=== PATIENT | male | born 1965 | race Caucasian/White ===

== ENCOUNTER 2019-06-05 09:35 | Emergency (ER) | payer BC ==
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
--- OUTSIDE RECORDS SUMMARY | 2019-06-05 09:41 | XMS REPORT | Continuity of Care Document ---
:1965 External Reference #:[id number] Author Name Eliazar Almaraz M.D (transmitted by agent of provider Robyn Taylor) Address [address] [place] [address] Care Team Providers Name Role Phone Isaac Henley MD Care Team Information Medical Receptionist Assistant [phone] Isaac Henley MD - Family Medicine Care Team Information Medical Receptionist Assistant [phone] Problems Description No Information Available Social History Type Date Description Comments Sex Unknown Tobacco Use Start: Unknown Never Smoked Cigarettes Smokeless Tobacco Current Smokeless Tobacco User ETOH Use Current Alcohol Use - 1-3 Days A Week. Recreational Drug Use Never Used Drugs Allergies, Adverse Reactions, Alerts Description No Known Drug Allergies Medications Active Medications SIG Qnty Indications Ordering Provider Date Diclofenac Sodium Unknown 75mg Tablets DR Lamotrigine Unknown 150mg Tablets Venlafaxine HCL ER every day Unknown 150mg Tablets ER 24HR Omeprazole 1 by mouth Unknown 40mg Capsules DR every day Seroquel Unknown 100mg Tablets Hydroxyzine HCL three times a Unknown 25mg Tablets day as needed Ativan 1 by mouth each Unknown 1mg Tablets day Ingrezza Unknown 80mg Capsules Acetaminophen-Codeine #3 one tab by Unknown mouth as needed 300-30mg Tablets every 4 hours Cyclobenzaprine HCL one tab daily Unknown 5mg Tablets at hs. Saphris Unknown 5mg Tablets Sub Immunizations Description No Information Available Vital Signs Date Vital Result Comment 05/15/2019 1:55pm Weight 170.00 lb Height 73 inches 6'1" BMI (Body Mass Index) 22.4 kg/m2 BP Systolic 115 mmHg BP Diastolic 81 mmHg Heart Rate 72 /min O2 % BldC Oximetry 99 % Body Temperature 97.3 F [place] Score 9 Neck Circumference in inches 15 Pain Level 0 Results Description No Information Available Procedures Description No Information Available Medical Devices Description No Information Available Encounters Description No Information Available Assessments Description No Information Available Plan of Treatment No Information Available Functional Status Description No Information Available Mental Status Description No Information Available Referrals Description No Information Available
--- OUTSIDE RECORDS SUMMARY | 2019-06-05 09:41 | XMS REPORT | Continuity of Care Document ---
:1965 External Reference #:[id number] Author Name Eliazar Almaraz M.D Address [address] [place] [address] Care Team Providers Name Role Phone Isaac Henley MD Care Team Information [employer] [phone] Isaac Henley MD - Family Medicine Care Team Information [employer] [phone] Problems Description No Information Available Social History Type Date Description Comments Sex Unknown Tobacco Use Start: Unknown Never Smoked Cigarettes Smoking Status Reviewed: 05/16/19 Never Smoked Cigarettes Smokeless Tobacco Current Smokeless [...] Oximetry 99 % Body Temperature 97.3 F [place] Score 9 Neck Circumference in inches 15 Pain Level 0 Results Description No Information Available Procedures Description No Information Available Medical Devices Description No Information Available Encounters Description No Information Available Assessments Description No Information Available Plan of Treatment Future Appointment(s):06/05/2019 10:30 am - Jade Stewart NP at [facility]8005/19/2019 8:30 pm - Sleep Lab - Eliazar Almaraz MD at Sleep Lab Functional Status Description No Information Available Mental Status Description No Information Available Referrals Description No Information Available
--- OUTSIDE RECORDS SUMMARY | 2019-06-05 09:41 | XMS REPORT | Continuity of Care Document ---
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 Chief Problems Active Problems Provider Date Atypical depressive [...] 40mg Capsules DR by mouth every day Seroquel 1 by mouth every Unknown 100mg Tablets day Hydroxyzine HCL take one tablet Unknown 25mg by mouth 4 times Tablets a day as needed Ativan 1 take by mouth Unknown 1mg Tablets as needed daily Ingrezza 1 at bedtime [place], 80mg Capsules Acetaminophen-Codeine as directed Joaquin Gomez, #3 DO 300-30mg Tablets Cyclobenzaprine HCL as direcrted prn ElizabethJasmyne, 5mg PA-C Tablets Saphris Dissolve 1 Tablet Unknown 5mg Tablets Sub Under The Tongue Twice A Day History Medications Klonopin 1/2 tab by mouth Isaac Henley MD 10/29/2018 - 10/29/2018 1mg Tablets three times a day as needed Immunizations CPT Code Status Date Vaccine Lot # 52089 Given 03/19/2019 Influenza Virus Vaccine, Quadrivalent, 36 Mos+, [id number] Refused 01/02/2017 Influenza Virus Vaccine Quadrivalent Iiv4 Split Preser Free Id Vital Signs Date Vital Result Comment 04/21/2019 8:09am BP Systolic Sitting Right Arm 117 mmHg BP Diastolic Sitting Right Arm 80 mmHg Body Temperature 97.6 F Heart Rate 86 /min 03/19/2019 8:15am BP Systolic 127 mmHg BP Diastolic 83 mmHg Body Temperature 97.3 F Heart Rate 77 /min Respiratory Rate 17 /min Height 71 inches 5'11" Weight 171.00 lb BMI (Body Mass Index) 23.8 kg/m2 BSA (Body Surface Area) 1.97 m2 [place] body weight in kilograms 78 kg O2 % BldC Oximetry 99 % Results Test Acquired Date Facility Test Result H/L Range Note TSH Reflex 01/23/[address] Thyroid Stim 0.80 uIU/mL Normal 0.30-4.20 1 FT4 And/Or [address] Hormone FT3 [place] [address] [phone] Reflex add FT3? Y Reflex add FT4? Y CBC W/Automated 01/23/[address] White Blood 5.0 K/uL Normal 3.4-10.[address] [place] [address] [phone] Red Blood Count 4.64 M/uL Normal 4.20-5.80 [...] 33.0-73.0 Lymph % 36.8 % Normal 20.0-42.0 [place]ake % 11.3 % High 0.0-10.0 Eo% 0.8 % Normal 0.0-6.6 Bas% 0.6 % Normal 0.0-1.1 Immature Grans 0.2 % Normal 0.0-5.0 NRBC % 0.0 /100WBC < 10/ 100 WBC Neut# 2.53 K/uL Normal 1.8-7.0 Lymph # 1.85 K/uL Normal 1.0-4.0 [place]ake # 0.57 K/uL Normal 0.0-0.8 Eos # 0.04 K/uL Normal 0.0-0.5 Baso # 0.03 K/uL Normal 0.0-0.1 Immature Grans Absolute 0.01 K/uL NRBC # 0.00 K/uL Comprehensive Metabolic 01/23/[address] Glucose 107 mg/dL High 74-106 Panel [address] [place], [place] [id number] [phone] BUN 12 mg/dL Normal 7-18 Creatinine 1.1 [...] Y Reflex add FT4? Y CK 01/23/[address] CK 340 U/L High 39-308 [address] [place] [address] [phone] Reflex add FT3? Y Reflex add FT4? Y Vitamin B12 And 01/23/[address] Vitamin B12 682 pg/mL Normal 193-986 Folate [address] [place] [address] [phone] Folic Acid > 20.0 ng/mL High 3.1-17.5 [...] at [email or web address]. Procedures Date Code Description Status 04/21/2019 14592 Fibula FX closed proximal or shaft w/o manipulation Completed 01/23/2019 23949 Brief Emotional/Behav Assessment W/ Scoring Doc Per Completed Standard Inst 10/29/2018 06937 Remove Impact Cerumen Irrigati Completed 08/28/2017 55847484 Colonoscopy Completed 06/11/2014 96591135 Colonoscopy Completed 04/02/2013 30705295 Colonoscopy Completed Medical Devices Description No Information Available Encounters Type Date Location Provider Dx Diagnosis Office Visit 04/21/2019 [facility]opa[facility] Office Brittaney Morales S82.425A Nondisp 8:00a S., RPAC transverse fracture of shaft of left fibula, init M25.561 Pain in right knee S80.01xA Contusion of right knee, initial encounter Office Visit 03/19/2019 8:10a Family Medicine Isaac Henley, F41.1 Generalized Tobias WHIPPEL MD anxiety disorder K22.70 Bailey's esophagus without dysplasia J45.909 Unspecified asthma, uncomplicated Z23 Encounter for immunization Office Visit 01/30/2019 2:50p Family Medicine Isaac Henley F41.1 Generalized Tobias WHIPPLE MD anxiety disorder S01.81xA Laceration w/o foreign body of oth part of head, init encntr Office Visit 01/23/2019 8:30a Family Medicine Isaac Henley F41.1 Generalized Tobias WHIPPLE MD anxiety disorder R25.1 Tremor, unspecified Office Visit 12/17/2018 8:50a GI Leonard Lopes, K22.70 Bailey's MD esophagus without dysplasia Office Visit 10/29/2018 7:45a Family Medicine Isaac Henley MD F41.1 Generalized Tobias WHIPPLE anxiety disorder K21.9 Gastro-esophageal reflux disease without esophagitis R06.02 Shortness of breath H61.21 Impacted cerumen, right ear Assessments Date Code Description Provider 04/21/2019 S82.425A Nondisplaced transverse fracture of Brittaney Morales, [facility] shaft of left fibula, initial encounter for closed fracture 04/21/2019 M25.561 Pain in right knee Brittaney Morales [facility] 04/21/2019 S80.01xA Contusion of right knee, initial Brittaney Morales [facility] encounter 03/19/2019 F41.1 Generalized anxiety disorder Isaac [...] Bailey's esophagus without dysplasia Leonard Lopes MD 10/29/2018 F41.1 Generalized anxiety disorder Isaac Henley MD 10/29/2018 K21.9 Gastro-esophageal reflux disease without Isaac Henley MD esophagitis 10/29/2018 R06.02 Shortness of breath Isaac Henley MD 10/29/2018 H61.21 Impacted cerumen, right ear Isaac Henley MD Plan of Treatment Future Appointment(s):05/06/2019 8:00 am - Brittaney Morales, [facility] at Orthopaedic Csxtdb1609/16/2019 7:30 am - Isaac Henley MD at [facility]06/17/2019 8:30 am - Leonard Lopes MD at 04/21/2019 - Brittaney Morales, RPACS82.425A Nondisplaced transverse fracture of shaft of left fibula, initial encounter for closed yrpzgzmtC36.561 Pain in right kneeS80.01xA Contusion of right knee, initial encounterAllNew Medication:Diclofenac Sodium 75 mg - take 1 tablet by mouth twice daily with food Functional Status Description No Information Available Mental Status Description No Information Available Referrals Description No Information Available
--- NOTE | 2019-06-05 10:06 | UC ---
General HPI - HPI Summary HPI Summary: Patient here with his - states he is having an anxiety attack. Was at [place] two days ago and had labs, including a d-dimer, EKG and cardiology consult and they did not find any abnormalities. They gave him ativan and to follow up with his psychiatrist. States he is having another similar episode. He has a hx of anxiety but never this bad. Feels his heart racing. No chest pain. SOB, nauseated. No abdominal pain. no recent illness. no fever. His father from an MVA 1 month ago. is scheduled to see his psychiatrist today and to follow up with dr. Ngo on a sleep study he had done. - History of Current Complaint Chief Complaint: UCGeneralIllness Stated Complaint: ANXIETY ATTACK Time Seen by Provider: 06/05/19 09:50 Pain Intensity: 0 - Allergy/Home Medications Allergies/Adverse Reactions: Allergies Allergy/AdvReac Type Severity Reaction Status Date / Time No Known Allergies Allergy Verified 06/05/19 09:38 Home Medications: Home Medications Asenapine Maleate [Saphris] 5 mg SL DAILY PRN 06/05/19 [History Confirmed ] Cyclobenzaprine TAB* [Flexeril 10 MG TAB*] 5 mg PO BID PRN 06/05/19 [History Confirmed 06/05/19] Diclofenac Sodium EC TAB* [Voltaren EC TAB*] 75 mg PO BID 06/05/19 [History Confirmed 06/05/19] LORazepam TAB(*) [Ativan 1 MG TAB (*)] 1 mg PO DAILY PRN 06/05/19 [History Confirmed 06/05/19] Omeprazole 40 mg PO DAILY 06/05/19 [History Confirmed 06/05/19] QUEtiapine TAB* [Seroquel 100 MG *] 150 mg PO BEDTIME 06/05/19 [History Confirmed 06/05/19] Valbenazine Tosylate [Ingrezza] 80 mg PO BEDTIME 06/05/19 [History Confirmed 08/19] Venlafaxine EXT RELEASE CAP* [Effexor Xr CAP*] 225 mg PO DAILY 06/05/19 [ History Confirmed 06/05/19] hydrOXYzine HCL TAB* [Atarax 25 MG TAB*] 25 mg PO QID PRN 06/05/19 [History Confirmed 06/05/19] lamoTRIgine TAB(*) [LaMICtal TAB(*)] 75 mg PO DAILY 06/05/19 [History Confirmed 06/05/19] PMH/Surg Hx/FS Hx/Imm Hx Previously Healthy: Yes Psychological History: Anxiety - Surgical History Surgical History: Yes Surgery Procedure, Year, and Place: MULTIPLE ROTATOR CUFF REPAIRS. WRIST SURGERY X 3,. 03/2013-RIGHT ROTATOR CUFF REPAIR. multiple right lower leg repair - Family History Known Family History: Positive: Other - mother/sister with mental illness - Social History Alcohol Use: None Substance Use Type: None Smoking Status (MU): Current Every Day Smoker Type: Smokeless Tobacco Amount Used/How Often: twice daily Review of Systems All Other Systems Reviewed And Are Negative: Yes Respiratory: Positive: Shortness Of Breath Physical Exam Triage Information Reviewed: Yes Appearance: Other: - mild distres, shaky and anxious appearing Vital Signs: Initial Vital Signs Temp 97.3 F 06/05/19 09:39 Pulse 78 06/05/19 09:39 Resp 22 06/05/19 09:39 BP 144/110 06/05/19 09:39 Pulse Ox 100 06/05/19 09:39 Eyes: Positive: Conjunctiva Clear ENT: Positive: Normal ENT inspection Neck: Positive: Supple Respiratory: Positive: Lungs clear, Normal breath sounds, Other: - tachypneic Cardiovascular: Positive: RRR, No Murmur Course/Dx - Course Course Of Treatment: This is a 54 yr old with anxiety having a panic attack Records from [place]: Glucose: 95 EKG: NSR rate: 73 Notes from his work up at [place] were unremarkable. No cardiology consult in the records, per patient he did talk to one and they were not concerned and felt this was all anxiety related. Patient has his prescribed hydroxyzine on him. Recommended he take 50 mg PO now. Took Ativan 1 mg about 2 hours ago with minimal relief No SI/HI. Feels hopeless Repeat eval - states he feels calmer since the hydroxyzine and the edge has been taken off. NO longer tachypneic Plan Follow up with psychiatrist as scheduled today. Continue hydoxyzine 50 mg every 6hours as needed for hydroxyzine If symptoms persist or worsen, recommend following up with your psychiatrist or returning to the ER Needs Blood pressure closely followed up - Diagnoses Provider Diagnosis: Anxiety attack Discharge ED - Sign-Out/Discharge Documenting (check all that apply): Patient Departure All imaging exams completed and their final reports reviewed: No Studies - Discharge Plan Condition: Fair Disposition: HOME Patient Education Materials: Anxiety (ED) Referrals: Harjinder PHAN,Claire Zapata [Primary Care Provider] - Additional Instructions: Recommend seeing your psychiatrist right after this visit as scheduled Continue Hydroxyzine 50 mg - 100 mg every 6 hours as needed for anxiety Defer to psychiatrist regarding continuing ativan use If symptoms persist or worsen, recommend following up at the ER or with PCP or psychiatrist Blood pressure needs to be rechecked closely - Billing Disposition and Condition Condition: FAIR Disposition: Home
[2019-06-05 11:21] VITALS: BP 160/110
== END 2019-06-05 11:20 | disposition home or self-care (01) ==
LOC: UCCORT 09:35
DX: F41.9 Anxiety disorder, unspecified (principal); Z79.899 Other long term (current) drug therapy; F17.210 Nicotine dependence, cigarettes, uncomplicated; R06.02 Shortness of breath
CPT/HCPCS: 93005; 99212; G0463